=== PATIENT | female | born 1960 | race American Indian/Alaskan Native ===

== ENCOUNTER 2022-03-19 10:04 | Emergency (ER) | payer OTHER ==
--- NOTE | 2022-03-19 15:35 | Emergency Department Report ---
ED Allergic Reaction HPI - General Chief complaint: Allergic Reaction Stated complaint: ALLERGIC REACTION Source: patient Mode of arrival: Ambulatory Limitations: No Limitations - History of Present Illness Initial Comments: 62-year-old female presents to the ED complaining allergic reaction to eyebrow dye . Patient states that she had her eyebrows dyed x 6 days ago and started to notice a red rash noted to eyebrows. Patient states she noticed some itching and mild edema. Patient states she has been taking Benadryl [id number] with relief. States she tried to do a televisit with her doctor who told her to come to the ED and get steroid injection. Patient is alert and oriented x3. No acute distress noted. No ill appearance noted. MD Complaint: allergic reaction Onset/Timin -: days(s) Exposure: other Symptoms: rash, itching Severity: mild Treatment Prior to Arrival: none - Related Data Previous Rx's Medication Instructions Recorded Last Taken Type cephALEXin [Keflex] 500 mg PO Q12HR 10 Days #20 cap 03/19/22 Unknown Rx methylPREDNISolone [Medrol 4MG 4 mg PO DAILY 7 Days #21 tab 03/19/22 Unknown Rx DOSEPAK (21 tabs)] Allergies Allergy/AdvReac Type Severity Reaction Status Date / Time aspirin Allergy Swelling Verified 03/19/22 10:09 ED Review of Systems ROS: Stated complaint: ALLERGIC REACTION Other details as noted in HPI Constitutional: denies: chills, fever Eyes: denies: eye pain, eye discharge, vision change ENT: denies: ear pain, throat pain Respiratory: denies: cough, shortness of breath, wheezing Cardiovascular: denies: chest pain, palpitations Endocrine: no symptoms reported Gastrointestinal: denies: abdominal pain, nausea, diarrhea Genitourinary: denies: urgency, dysuria, discharge Musculoskeletal: denies: back pain, joint swelling, arthralgia Skin: denies: rash, lesions Neurological: denies: headache, weakness, paresthesias Psychiatric: denies: anxiety, depression Hematological/Lymphatic: denies: easy bleeding, easy bruising ED Past Medical Hx - Past Medical History Previous Medical History?: No - Surgical History Past Surgical History?: No - Medications Home Medications: Home Medications Medication Instructions Recorded Confirmed Last Taken Type cephALEXin [Keflex] 500 mg PO Q12HR 10 Days #20 cap 09/06/22 Unknown Rx methylPREDNISolone [Medrol 4MG 4 mg PO DAILY 7 Days #21 tab 03/19/22 Unknown Rx DOSEPAK (21 tabs)] ED Physical Exam - General Limitations: No Limitations General appearance: alert, in no apparent distress - Head Head exam: Present: atraumatic, normocephalic - Eye Eye exam: Present: normal appearance - ENT ENT exam: Present: mucous membranes moist - Neck Neck exam: Present: normal inspection - Respiratory Respiratory exam: Present: normal lung sounds bilaterally. Absent: respiratory distress - Cardiovascular Cardiovascular Exam: Present: regular rate, normal rhythm. Absent: systolic murmur, diastolic murmur, rubs, gallop - GI/Abdominal GI/Abdominal exam: Present: soft, normal bowel sounds - Extremities Exam Extremities exam: Present: normal inspection - Back Exam Back exam: Present: normal inspection - Neurological Exam Neurological exam: Present: alert, oriented X3 - Psychiatric Psychiatric exam: Present: normal affect, normal mood - Skin Skin exam: Present: warm, dry, intact, normal color. Absent: rash ED Course Vital Signs 03/19/22 10:09 Temperature 98.2 F Pulse Rate 79 Respiratory 17 Rate Blood Pressure 109/53 [Left] O2 Sat by Pulse 99 Oximetry ED Medical Decision Making - Medical Decision Making 62-year-old female presents to the ED complaining allergic reaction to eyebrow dye . Patient states that she had her eyebrows dyed x 6 days ago and started to notice a red rash noted to eyebrows. Patient states she noticed some itching and mild edema. Patient states she has been taking Benadryl [id number] with relief. States she tried to do a televisit with her doctor who told her to come to the ED and get steroid injection. Patient is alert and oriented x3. No acute distress noted. No ill appearance noted. Physical examination patient has erythema with encrusted lesion noted to the bilateral eyebrows. Rechecked the patient is resting quietly , comfortable and feeling better. I discussed the results of diagnostic study, my clinical impression and the plan for further treatment with the patient. Patient agrees with plan and discharge at this present time. All question addressed. I have given the patient instruction regarding a diagnosis ,expectation ,follow- up and return precaution. I explained to the patient that emergent condition may arise and to return to the ED for new worsen and any new persisting condition. I have explained the importance of following up with the primary care physician or referral physician listed below has instructed. The patient verbalized understanding of discharge instruction. Critical care attestation.: If time is entered above; I have spent that time in minutes in the direct care of this critically ill patient, excluding procedure time. ED Disposition Clinical Impression: Contact dermatitis Qualifiers: Contact dermatitis type: allergic Contact dermatitis trigger: other trigger Qualified Code(s): L23.89 - Allergic contact dermatitis due to other agents; L23.8 - Allergic contact dermatitis due to other agents Disposition: 01 HOME / SELF CARE / HOMELESS Is pt being admited?: No Does the pt Need Aspirin: No Condition: Stable Instructions: Contact Dermatitis, [id number] Additional Instructions: Take medication as prescribed Return to the ED for any worsening symptom Prescriptions: cephALEXin [Keflex] 500 mg PO Q12HR 10 Days #20 cap methylPREDNISolone [Medrol 4MG DOSEPAK (21 tabs)] 4 mg PO DAILY 7 Days #21 tab Referrals: [facility] [Provider Group] - 3-5 Days Forms: Work/School Release Form(ED) Time of Disposition: 15:44
[2022-03-19] MEDS ORDERED: dexAMETHasone 20 MG/5 ML VIAL IM ONE (15:41)
[2022-03-19 16:21] VITALS: BP 152/96
== END 2022-03-19 16:23 | disposition home or self-care (01) ==
LOC: ED 10:04
DX: L25.9 Unspecified contact dermatitis, unspecified cause (principal); Z88.6 Allergy status to analgesic agent
CPT/HCPCS: 96372; 99282; J1100